=== PATIENT | female | born 1995 | race Caucasian/White ===

== ENCOUNTER 2016-07-03 22:34 | Emergency (ER) | payer BC, OTHER ==
[~2016-07-03] VITALS: Ht 165.1 cm; Wt 98.0 kg
[~2016-07-03 22:34] MED LIST: ALBUAER2 INH; BCPILLS PO; FLUO20CA35 PO
[2016-07-03 22:41] VITALS: TEMP 36.9; Ht 165.1 cm; Wt 98.0 kg
[2016-07-03] MEDS ORDERED: PROP20TA67 PO ×2 (23:11)
[2016-07-03] MEDS ORDERED: DROS1TAB21 PO (23:16)
[2016-07-03] MEDS ORDERED: NAPR1TAB9 PO (23:16)
[2016-07-03] MEDS ORDERED: FEXO1TAB46 PO (23:16)
[2016-07-03] MEDS ORDERED: ZOLP5TAB PO (23:16)
[2016-07-03] MEDS ORDERED: AMPH10TA2 PO (23:16)
[2016-07-03] MEDS ORDERED: NORT10CA4 PO (23:16)
[2016-07-03] MEDS ORDERED: TRAMADOL HCL 50 MG TAB PO STA (23:25)
[2016-07-03] MEDS ORDERED: KETOROLAC TROMETHAMINE 60 MG/2 ML VIAL IM STA (23:25)
[2016-07-03] MEDS ORDERED: TRAMADOL HCL 50 MG HOME PACK PO ONE (23:30)
[2016-07-03] MEDS ORDERED: DEXAMETHASONE SOD INJ 10 MG/ML VIAL IM ONE (23:30)
[2016-07-03] MEDS ORDERED: TRAM-10 PO (23:57)
[2016-07-03] MEDS ORDERED: PRED50TA PO (23:57)
--- NOTE | 2016-07-03 23:58 | EMERGENCY ROOM VISIT NOTE ---
ED Visit Note First contact with patient: 23:14 Chief Complaint: Headache, Neck Pain, Temp Fluctuation, Tingly History of Present Illness: Patient is a 20-year-old female who presents to the emergency department as he didn't for evaluation of her neck pain, migraine, and fluctuation temperature. She reports that she is had a migraine throughout the entire day. She also complains of some neck pain. The patient has a history of teaching the symptoms as she is had apparently long-standing history of concussions. She's gone through physical therapy for her neck as well as her migraines. She reports that she did take naproxen today as well as Excedrin and her triptan without relief of symptoms. She reports photophobia as well as nausea. There is been no vomiting. She reports no recent fevers or upper respiratory infections. She reports a fluctuation her temperature and her temperature was recorded at 95.5F today. She rates her current discomfort as an 8/10. She reports all symptoms she is expansion previously, however the intensity is worse than usual. This is not the worst headache of her life, however. She denies any blurry vision, double vision, slurred speech, facial droop, unilateral weakness/numbness, chest pain, abdominal pain, or chance for . Medications: Reviewed and discussed with the patient. Allergies: No known medication allergies. PMH: Migraine headaches, concussions, neck pain SHx: Patient is a 20-year-old [employer] who lives with roommates. ROS: All pertinent positive and negative review of systems are appropriately documented in the History of Present Illness. Physical Exam: VITAL SIGNS - Vital signs and nursing notes were reviewed. GENERAL - 20-year-old female appearing her stated age who is in no acute distress. Communicates well with provider and answers questions appropriately. HEAD - Normocephalic, Atraumatic. No Adams's Sign or Raccoon's Eyes. No depressed skull fractures palpable. EYES - PERRL with EOMI bilaterally. Sclera anicteric. Palpebral conjunctiva pink and moist with no injection noted. EARS - No deformities of external structures noted on gross examination bilaterally. No pain elicited with palpation of the tragus bilaterally. External auditory canals without discharge or otorrhea. Tympanic membranes pearly lorenzana without retraction or bulging. NOSE - Midline and without cyanosis. No epistaxis or purulent drainage noted. Septum midline without deviation or septal hematoma noted. MOUTH/OROPHARYNX - Without perioral cyanosis. Buccal mucosa pink and moist and without leukoplakia. Tongue midline with equal elevation of palate bilaterally. No tonsillar hypertrophy, erythema, or exudates noted. Good dentition noted. NECK - Neck with FROM. Supple to palpation. No lymphadenopathy noted. No nuchal rigidity. Tenderness to palpation mildly in the paraspinal musculature. No point tenderness over the spinous processes. LUNGS - Chest wall symmetric without accessory muscle use, intercostals retractions, or central cyanosis. Normal vesicular breath sounds CTA B/L. No wheezes, rales, or rhonchi appreciated. CARDIAC - RRR with S1/S2. No murmur, rubs, or gallops appreciated. EXTREMITIES - No pretibial edema present. +3/5 radial and dorsalis pedis pulses palpated throughout. FROM with no tremors, fasciculations, or clonus noted on PROM throughout. +5/5 strength noted in UE/LE bilaterally. NEUROLOGIC - Cranial nerves II through XII grossly intact. Sensory intact to light touch throughout. Patellar reflexes +2/4. Patient able to perform rapid alternating movements appropriately. Negative Pronator Drift. PSYCH - A&Ox3 and cooperates fully with examiner. Pt is very pleasant and interacts well with examiner. ED Course: Patient was seen and evaluated by myself. Patient was provided 60 mg Toradol, 10 mg Decadron, and one Ultram. Patient was provided a prescription for prednisone as well as Ultram for home. She was encouraged to follow-up with [facility] as well as her specialists from today's visit. She was educated on worrisome symptoms for return visit to the emergency department. Patient discharged home afebrile and in good condition. In the evaluation and treatment of this patient, the following differential diagnoses were considered: Musculoskeletal Strain, Discitis, Cervical Spine Fracture, Cervical Spine Dislocation, Cervical Spine Subluxation, Cervical Spondylosis, Fibromyalgia, Osteoarthritis, Polymyalgia Rheumatica, Psychogenic Pain Disorder, Tumor of Soft Tissue or Spine, Migraine Headache, Intracranial Hemorrhage, Subdural Hematoma, Subarachnoid Hemorrhage, Cerebral Aneurysm, Temporal/Giant Cell Arteritis, Tension Headache, Meningitis, Encephalitis, or Hydrocephalus. Given the patient's presentation and stated complaints, I did elect to perform the above-mentioned workup. The patient presents today with multiple complaints. She has had each of these similar symptoms previously. She long- standing history of migraine headaches as well as neck pain. She had no new or recent trauma to her neck. She is tried her [id number]-[id number] medications with minimal relief of symptoms. She has no fever. She has no meningeal findings. She is no focal neurological deficits. Her exam is otherwise unremarkable. At this point, I do not feel that labs or imaging studies will aid in diagnosis. She was treated with the above mentioned pain medication cocktail and will be sent home with Ultram as well as prednisone. She'll follow-up with [facility] or her specialists from today's visit. She will return for changing/worsening symptoms. Patient discharged home afebrile and in good condition. Impression: Migraine, Neck Pain Discharge Instructions: You've been treated in the emergency department today for your neck pain and migraine. You have been prescribed Prednisone 50 mg to be taken orally once a day for the next 4 days. This is an anti-inflammatory medicine to be used to help minimize your symptoms. You should take the COMPLETE course of the medication. You have been prescribed Ultram to be used for pain control. You cannot drive or consume alcohol while on this medicine. This medicine should only be used for pain that cannot be controlled with qbhi-dlu-[id number] pain medicines. For pain control, you can use the following vvty-zup-smnjppe medicines (if >12 yo): - Regular strength (325mg/tab) Tylenol (acetaminophen) 2 tabs every 4-6 hours as needed. Do not exceed 12 tablets in a 24 hour period. Avoid taking more than 4 grams (4000 mg) of Tylenol per day. This includes any other sources of acetaminophen you may take on a regular basis. - Regular strength (200 mg/tab) Advil (ibuprofen) 1-2 tabs every 4-6 hours as needed. Do not exceed a dose of 3200 mg per day. Follow-up with [facility] from today's visit. Return for any changing or worsening symptoms. Problem List Medical Problems: (1) Depression Status: Chronic Current/Historical Medications Scheduled Drospirenone-Ethinyl Estradiol (Gianvi), 1 TAB PO HS Fexofenadine Hcl (Bernadette), 180 MG PO HS Nortriptyline HCl (Nortriptyline HCl), 40 MG PO HS Prednisone (Prednisone), 50 MG PO DAILY Propranolol (Inderal), 20 MG PO QAM Zolpidem Tartrate (Ambien), 5 MG PO HS Scheduled PRN Amphetamine-Dextroamphetamine 10MG (Adderall 10MG), 10 MG PO DAILY PRN for FOCUS Naproxen (Aleve), 220 MG PO UD PRN for Pain or Fever Propranolol (Inderal), 20 MG PO HS PRN for Anxiety Tramadol (Ultram), 1 TAB PO Q4H PRN for Pain Allergies Coded Allergies: Grass (Verified Allergy, Unknown, SEASONAL ALLERGIES = RESPIRATORY SX, ) Vital Signs Date Time Temp Pulse Resp B/P Pulse Ox O2 Delivery O2 Flow Rate FiO2 07/04/16 00:06 72 16 134/85 97 07/03/16 22:41 36.9 101 18 139/104 94 Room Air Medications Administered Medications (Trade) Dose Ordered Sig/Rodney Route Start Time Stop Time Status Last Admin Dose Admin Ketorolac Tromethamine (Toradol Inj) 60 mg NOW STAT IM 07/03/16 23:25 07/03/16 23:27 DC 07/03/16 23:36 60 MG Dexamethasone Sodium Phosphate (Decadron Inj) 10 mg NOW ONCE IM 07/03/16 23:30 07/03/16 23:31 DC 07/03/16 23:36 10 MG Tramadol HCl (Ultram Tab) 50 mg ONE STAT PO 07/03/16 23:25 07/03/16 23:27 DC 07/03/16 23:36 50 MG Tramadol HCl (Ultram Home Pack) 1 homepack UD ONCE PO 07/03/16 23:30 07/03/16 23:31 DC 07/04/16 00:04 1 HOMEPACK Departure Information Impression Primary Impression: Migraine Additional Impression: Neck pain Dispostion Home / Self-Care Condition GOOD Prescriptions Tramadol (Ultram) 50 Mg Tab 1 TAB PO Q4H Y for Pain, #8 TAB For Initial Treatment Prov: Rey Mckinnon PA-C 07/03/16 Prednisone (Prednisone) 50 Mg Tab 50 MG PO DAILY for 4 Days, #4 TAB Prov: Rey Mckinnon PA-C 07/03/16 Referrals [facility] (PCP) Patient Instructions ED Headache Migraine, My [facility] Additional Instructions You've been treated in the emergency department today for your neck pain and migraine. You have been prescribed Prednisone 50 mg to be taken orally once a day for the next 4 days. This is an anti-inflammatory medicine to be used to help minimize your symptoms. You should take the COMPLETE course of the medication. You have been prescribed Ultram to be used for pain control. You cannot drive or consume alcohol while on this medicine. This medicine should only be used for pain that cannot be controlled with lbex-zzo-kayaale pain medicines. For pain control, you can use the following [id number]-clq-dwxjvnm medicines (if >12 yo): - Regular strength (325mg/tab) Tylenol (acetaminophen) 2 tabs every 4-6 hours as needed. Do not exceed 12 tablets in a 24 hour period. Avoid taking more than 4 grams (4000 mg) of Tylenol per day. This includes any other sources of acetaminophen you may take on a regular basis. - Regular strength (200 mg/tab) Advil (ibuprofen) 1-2 tabs every 4-6 hours as needed. Do not exceed a dose of 3200 mg per day. Follow-up with [facility] from today's visit. Return for any changing or worsening symptoms. Problem Qualifiers Primary Impression: Migraine Migraine type: other Status migrainosus presence: without status migrainosus Intractability: not intractable Qualified Codes: G43.809 - Other migraine, not intractable, without status migrainosus
[2016-07-04 00:06] VITALS: BP 134/85; PULSE 72; O2SAT 97
== END 2016-07-04 00:02 | disposition home or self-care (01) ==
LOC: C.EDB 22:36 → C.EDC 07-04 00:02
DX: G43.909 Migraine, unspecified, not intractable, without status migrainosus (principal); M54.2 Cervicalgia; Z87.820 Personal history of traumatic brain injury